=== PATIENT | female | born 1980 | race Caucasian/White ===

== ENCOUNTER 2024-04-23 06:08 | Day surgery (SDC) | payer BC ==
[~2024-04-23] VITALS: Ht 157.5 cm; Wt 77.1 kg
[2024-04-23 07:22] LABS: HCG,QUAL RESULT NEGATIVE (NEGATIVE)
[2024-04-23] MEDS ORDERED: ROCURONIUM BROMIDE 10 MG/ML (ZEMURON) ONE (07:39)
[2024-04-23] MEDS ORDERED: ONDANSETRON HCL 4 MG/2 ML VIAL ONE (07:39)
[2024-04-23] MEDS ORDERED: LR 1,000 ML IV.SOLN IV ONE (07:39)
[2024-04-23] MEDS ORDERED: NS 1000 ML IV.SOLN IV ONE (07:39)
[2024-04-23] MEDS ORDERED: SEVOFLURANE 15 MIN GAS INH ONE (07:39)
[2024-04-23] MEDS ORDERED: PROPOFOL 200MG/ 20ML VIAL (DIPRIVAN) IV ONE (07:39)
[2024-04-23] MEDS ORDERED: LIDOCAINE HCL/PF 1% 10 ML AMPUL INJ ONE (07:39)
[2024-04-23] MEDS ORDERED: DEXAMETHASONE SOD PHOSPHATE 4 MG/ML VIAL ONE (07:39)
[2024-04-23] MEDS ORDERED: EPINEPHrine HCL 1 MG/ML VIAL ONE (07:39)
[2024-04-23] MEDS ORDERED: NS IRRIG SOLN 1000 ML IR ONE (07:39)
[2024-04-23 07:40] VITALS: O2SAT 99
[2024-04-23] MEDS ORDERED: HYDROmorphone 1 MG/ML INJ. CARTRIDGE IVP PRN (08:15)
[2024-04-23] MEDS ORDERED: LR 1,000 ML IV ONE (08:15)
[2024-04-23] MEDS ORDERED: fentaNYL CITRATE/PF 100 MCG/2 ML AMP IVP PRN ×2 (08:15)
[2024-04-23] MEDS ORDERED: ONDANSETRON HCL 4 MG/2 ML VIAL IVP PRN (08:15)
[2024-04-23 13:06] VITALS: BP_SYST 118; PULSE 90; RESP 18
== END 2024-04-23 12:15 | disposition home or self-care (01) ==
LOC: SDS 06:08 → SMU 06:09 → SDS 12:15
PROVIDERS: ATTEND Otolaryngology
DX: D38.5 Neoplasm of uncertain behavior of other respiratory organs (principal); J32.9 Chronic sinusitis, unspecified; J34.2 Deviated nasal septum; K21.9 Gastro-esophageal reflux disease without esophagitis; E66.3 Overweight; F12.90 Cannabis use, unspecified, uncomplicated; Z68.31 Body mass index [BMI] 31.0-31.9, adult; Z98.890 Other specified postprocedural states; Z79.899 Other long term (current) drug therapy; Z83.3 Family history of diabetes mellitus; Z81.8 Family history of other mental and behavioral disorders
CPT/HCPCS: 31255; 30140; 30520; 84703; 88304; 88305; 88311; J1100; J0171; J2003; J2405; J2704; J7120; J7030